=== PATIENT | female | born 1930 | race African-American/Black ===

== ENCOUNTER 2018-05-03 22:36 | Inpatient (IN) | payer MEDICARE, MEDICAID ==
[~2018-05-03] VITALS: Ht 167.6 cm; Wt 61.7 kg
[~2018-05-03 22:36] MED LIST: ASPI-1159 PO; COR25 PO; LEVO25TA7 PO; LOSA1TAB40 PO
[2018-05-03] MEDS ORDERED: ONDANSETRON HCL 4MG/2ML VIAL IV STA (22:59)
[2018-05-03] MEDS ORDERED: SODIUM CHLORIDE 0.9% 1,000 ML IV ONE (22:59)
[2018-05-04] VITALS (10 sets, daily range): BP systolic 105–180; BP diastolic 47–85
[2018-05-04 00:13] LABS: BASOPHILS % 0.6 % (0.0-2.0); EOSINOPHILS % 1.9 % (0.0-5.0); HEMATOCRIT. 26.2 % (36.0-48.0); HEMOGLOBIN. 8.4 g/dL (12.0-16.0); LYMPHOCYTES % 20.3 % (20.0-50.0); MEAN CORPUSCULAR VOLUME 86.9 fL (81.0-99.0); MEAN PLATELET VOLUME 8.6 fl (7.4-10.4); MONOCYTES % 12.5 % (2.0-8.0); NEUTROPHILS % 64.7 % (40.0-76.0); PLATELET 211 x1000/uL (130-400); RED BLOOD CELL COUNT 3.01 mill/uL (4.2-5.4); RED CELL DISTRIBUTION WIDTH 14.3 % (11.6-14.6)
[2018-05-04 00:19] LABS: CHLORIDE 107 mEq/L (98-107)
[2018-05-04 00:32] LABS: INR 1.1; PARTIAL THROMBOPLASTIN TIME 27.5 sec (23.4-31.0); PROTHROMBIN TIME 10.8 sec (9.1-11.1)
[2018-05-04 02:03] LABS: CLARITY URINE CLEAR (CLEAR); COLOR URINE YELLOW (YELLOW); KETONES URINE NEGATIVE (NEGATIVE); LEUKOCYTE ESTERASE URINE NEGATIVE (NEGATIVE); NITRITE URINE NEGATIVE (NEGATIVE); OCCULT BLOOD URINE NEGATIVE (NEGATIVE); PROTEIN URINE NEGATIVE (NEGATIVE); UROBILINOGEN URINE 0.2 E.U./dL (0.2-1.0)
[2018-05-04] MEDS ORDERED: LOSA1TAB34 PO (06:08)
[2018-05-04] MEDS ORDERED: DOXA4TAB3 PO (06:10)
[2018-05-04] MEDS ORDERED: MELA1LIQ PO (06:12)
[2018-05-04] MEDS ORDERED: FURO40TA5 PO (06:12)
[2018-05-04] MEDS ORDERED: HYDROCODONE/ACETAMINOPHEN 5/325MG TABLET PO PRN (07:30)
[2018-05-04] MEDS ORDERED: ONDANSETRON HCL 4MG/2ML VIAL IV PRN (07:30)
[2018-05-04] MEDS ORDERED: ACETAMINOPHEN 325MG TABLET PO PRN (07:30)
[2018-05-04] MEDS ORDERED: IPRATROPIUM/ALBUTEROL 0.5-3(2.5)MG/3ML NEB INH PRN (07:30)
[2018-05-04] MEDS ORDERED: ACETAMINOPHEN 650MG/20.3ML UDC GT PRN (07:30)
[2018-05-04] MEDS ORDERED: GUAIFENESIN 200MG/10ML SUGAR FREE UDC PO PRN (07:30)
[2018-05-04] MEDS ORDERED: ACETAMINOPHEN 650MG SUPP PR PRN (07:30)
[2018-05-04] MEDS ORDERED: DOCUSATE SODIUM 100MG CAPSULE PO PRN (07:30)
[2018-05-04] MEDS ORDERED: MAGNESIUM/ALUMINUM HYDROXIDE/SIMETHICONE 30ML UDC PO PRN (07:30)
[2018-05-04] MEDS ORDERED: DIPHENHYDRAMINE 50MG/ML VIAL IV PRN (07:30)
[2018-05-04] MEDS ORDERED: NA PHOS,M-B/NA PHOS,DI-BA ENEMA 118ML PR PRN (07:30)
[2018-05-04 09:14] LABS: BASOPHILS % 0.8 % (0.0-2.0); EOSINOPHILS % 1.1 % (0.0-5.0); HEMATOCRIT. 24.7 % (36.0-48.0); HEMOGLOBIN. 7.8 g/dL (12.0-16.0); LYMPHOCYTES % 33.7 % (20.0-50.0); MEAN CORPUSCULAR HEMOGLOBIN 27.8 pg (28.0-32.0); MEAN CORPUSCULAR VOLUME 87.9 fL (81.0-99.0); MEAN PLATELET VOLUME 8.8 fl (7.4-10.4); MONOCYTES % 13.6 % (2.0-8.0); NEUTROPHILS % 50.8 % (40.0-76.0); PLATELET 202 x1000/uL (130-400); RED BLOOD CELL COUNT 2.81 mill/uL (4.2-5.4); RED CELL DISTRIBUTION WIDTH 14.7 % (11.6-14.6)
[2018-05-04 10:33] LABS: CHLORIDE 109 mEq/L (98-107)
[2018-05-04 10:41] LABS: LDL CHOLESTEROL 70 mg/dL (5-100)
[2018-05-04 10:42] LABS: HDL CHOLESTEROL 47 mg/dL (40-59)
[2018-05-04 10:43] LABS: TOTAL IRON BINDING CAPACITY 217 ug/dL (250-450)
[2018-05-04 11:03] LABS: FOLIC ACID (FOLATE) SERUM 19.7 ng/mL (>5.38)
[2018-05-04 11:10] LABS: CLARITY URINE CLEAR (CLEAR); COLOR URINE YELLOW (YELLOW); KETONES URINE NEGATIVE (NEGATIVE); LEUKOCYTE ESTERASE URINE 1+ (NEGATIVE); NITRITE URINE NEGATIVE (NEGATIVE); OCCULT BLOOD URINE NEGATIVE (NEGATIVE); PROTEIN URINE NEGATIVE (NEGATIVE); SPECIFIC GRAVITY URINE 1.015 (1.005-1.030); UROBILINOGEN URINE 0.2 E.U./dL (0.2-1.0)
[2018-05-04 11:55] LABS: *AMPHETAMINES SCREEN URINE NEGATIVE (NEGATIVE); *BARBITURATES SCREEN URINE NEGATIVE (NEGATIVE); *BENZODIAZEPINES SCREEN URINE NEGATIVE (NEGATIVE); *COCAINE SCREEN URINE NEGATIVE (NEGATIVE); METHADONE URINE SCREEN NEGATIVE (NEGATIVE)
[2018-05-04 11:56] LABS: CANNABINOID URINE SCREEN NEGATIVE (NEGATIVE); OPIATES URINE SCREEN PRESUMTIVE POSITIVE (NEGATIVE); PHENCYCLIDINE URINE SCREEN NEGATIVE (NEGATIVE)
[2018-05-04] MEDS: SODIUM CHLORIDE 0.9% INJ 3ML FLUSH IVF SCH ×2 (14:00→21:25)
[2018-05-04 15:45] LABS: CREATINE KINASE 87 IU/L (26-192)
[2018-05-04 15:46] LABS: CREATINE KINASE MB FRACTION 1.2 ng/mL (0.5-3.6)
[2018-05-04 20:11] LABS: HEMATOCRIT 27.8 % (36.0-48.0); HEMOGLOBIN 8.9 g/dL (12.0-16.0); MEAN CORPUSCULAR HEMOGLOBIN 27.8 pg (28.0-32.0); MEAN CORPUSCULAR VOLUME 86.8 fL (81.0-99.0); PLATELET 218 x1000/uL (130-400); RED BLOOD CELL COUNT 3.21 mill/uL (4.2-5.4); RED CELL DISTRIBUTION WIDTH 14.4 % (11.6-14.6)
[2018-05-04] MEDS: CLONIDINE 0.1MG TABLET PO PRN (20:36)
[2018-05-05] VITALS (8 sets, daily range): BP systolic 130–183; BP diastolic 57–79
[2018-05-05 00:24] LABS: CREATINE KINASE 80 IU/L (26-192)
[2018-05-05 00:25] LABS: CREATINE KINASE MB FRACTION 1.2 ng/mL (0.5-3.6)
[2018-05-05] MEDS: CLONIDINE 0.1MG TABLET PO PRN (05:01)
[2018-05-05] MEDS: SODIUM CHLORIDE 0.9% INJ 3ML FLUSH IVF SCH ×2 (05:01→14:26)
[2018-05-05 07:02] LABS: BASOPHILS % 0.5 % (0.0-2.0); EOSINOPHILS % 3.8 % (0.0-5.0); HEMATOCRIT. 25.8 % (36.0-48.0); HEMOGLOBIN. 8.5 g/dL (12.0-16.0); LYMPHOCYTES % 33.7 % (20.0-50.0); MEAN CORPUSCULAR HEMOGLOBIN 28.6 pg (28.0-32.0); MEAN CORPUSCULAR VOLUME 86.6 fL (81.0-99.0); MEAN PLATELET VOLUME 8.6 fl (7.4-10.4); MONOCYTES % 13.4 % (2.0-8.0); NEUTROPHILS % 48.6 % (40.0-76.0); PLATELET 185 x1000/uL (130-400); RED BLOOD CELL COUNT 2.98 mill/uL (4.2-5.4); RED CELL DISTRIBUTION WIDTH 14.2 % (11.6-14.6)
[2018-05-05 09:06] LABS: CHLORIDE 109 mEq/L (98-107)
[2018-05-05 09:14] LABS: LDL CHOLESTEROL 70 mg/dL (5-100)
[2018-05-05 09:15] LABS: HDL CHOLESTEROL 43 mg/dL (40-59)
[2018-05-05] MEDS ORDERED: SIMETHICONE 40 MG/0.6 ML 30ML ONE (14:31)
[2018-05-05] MEDS ORDERED: SODIUM CHLORIDE 0.9% 10ML VIAL ONE (15:06)
[2018-05-05] MEDS ORDERED: MIDAZOLAM HCL 5 MG/5 ML VIAL ONE (16:00)
[2018-05-05] MEDS ORDERED: FENTANYL CITRATE/PF 50MCG/ML 2ML VIAL ONE (16:01)
[2018-05-05] MEDS ORDERED: MIDAZOLAM HCL 5 MG/5 ML VIAL IV PRN (16:20)
[2018-05-05] MEDS ORDERED: HYDRALAZINE 20MG/ML VIAL IV ONE (16:30)
[2018-05-05] MEDS ORDERED: HYDRALAZINE 20MG/ML VIAL ONE (16:38)
[2018-05-05] MEDS ORDERED: HYDRALAZINE 20MG/ML VIAL IV NR (16:45)
== END 2018-05-05 19:49 | disposition home or self-care (01) | DRG 241 ==
LOC: ER 23:07 → 6WST 05-04 02:23 → ENRESERV 05-04 03:23
PROVIDERS: ADMIT Family Medicine; ATTEND Family Medicine
PROC: 30233N1 Transfusion of Nonautologous Red Blood Cells into Peripheral Vein, Percutaneous Approach (ICD-10-PCS; 2018-05-04)
PROC: 0DB68ZX Excision of Stomach, Via Natural or Artificial Opening Endoscopic, Diagnostic (ICD-10-PCS; principal; 2018-05-05 15:00)
DX: K29.70 Gastritis, unspecified, without bleeding (principal); E46 Unspecified protein-calorie malnutrition; I13.10 Hypertensive heart and chronic kidney disease without heart failure, with stage 1 through stage 4 chronic kidney disease, or unspecified chronic kidney disease; L97.929 Non-pressure chronic ulcer of unspecified part of left lower leg with unspecified severity; E86.0 Dehydration; D50.9 Iron deficiency anemia, unspecified; R55 Syncope and collapse; E78.5 Hyperlipidemia, unspecified; E03.9 Hypothyroidism, unspecified; N18.9 Chronic kidney disease, unspecified; I87.2 Venous insufficiency (chronic) (peripheral); K29.60 Other gastritis without bleeding; K44.9 Diaphragmatic hernia without obstruction or gangrene; Z87.11 Personal history of peptic ulcer disease; Z91.5 Personal history of self-harm; Z79.82 Long term (current) use of aspirin; Z79.899 Other long term (current) drug therapy; Z68.22 Body mass index [BMI] 22.0-22.9, adult
CPT/HCPCS: 36415; 36430; 71045; 80053; 80061; 80305; 81003; 82550; 82553; 82607; 82746; 83036; 83540; 83550; 83735; 83880; 84443; 84484; 85025; 85027; 85610; 85730; 86850; 86900; 86920; 87086; 88305; 88312; 88313; 93005; 93306; 93880; 93923; 96361; 96374; 99285; A4216; J0360; J2250; J2405; J3010; J7030; J7040; P9016

== ENCOUNTER 2019-02-25 15:56 | Emergency (ER) | payer MEDICARE, MEDICAID ==
[~2019-02-25] VITALS: Ht 157.5 cm; Wt 55.0 kg
[~2019-02-25 15:56] MED LIST changes: -ASPI-1159 PO; +ASPI-1393 PO; +DOXA4TAB3 PO; +FURO40TA5 PO; +LOSA1TAB34 PO; +MELA1LIQ PO
[2019-02-25 18:10] LABS: BASOPHILS % 0.8 % (0.0-2.0); EOSINOPHILS % 4.8 % (0.0-5.0); HEMATOCRIT. 28.5 % (36.0-48.0); HEMOGLOBIN. 9.3 g/dL (12.0-16.0); LYMPHOCYTES % 35.5 % (20.0-50.0); MEAN CORPUSCULAR HEMOGLOBIN 29.5 pg (28.0-32.0); MEAN CORPUSCULAR VOLUME 90.2 fL (81.0-99.0); MEAN PLATELET VOLUME 7.9 fl (7.4-10.4); MONOCYTES % 13.8 % (2.0-8.0); NEUTROPHILS % 45.1 % (40.0-76.0); PLATELET 216 x1000/uL (130-400); RED BLOOD CELL COUNT 3.16 mill/uL (4.2-5.4); RED CELL DISTRIBUTION WIDTH 14.2 % (11.6-14.6)
[2019-02-25 18:12] LABS: CHLORIDE 109 mEq/L (98-107)
[2019-02-25 18:15] LABS: INR 1.1; PARTIAL THROMBOPLASTIN TIME 29.3 sec (23.4-31.0); PROTHROMBIN TIME 11.1 sec (9.6-11.0)
[2019-02-25 19:36] VITALS: BP 184/94
== END 2019-02-25 20:16 | disposition home or self-care (01) ==
LOC: ER 15:56 → CANBEDREQ 22:03
DX: D64.9 Anemia, unspecified (principal); L97.929 Non-pressure chronic ulcer of unspecified part of left lower leg with unspecified severity; I10 Essential (primary) hypertension
CPT/HCPCS: 36415; 71045; 80053; 83880; 84484; 85025; 85610; 85730; 86850; 86900; 86901; 93005; 99284; Z7610

== ENCOUNTER 2019-04-02 10:29 | Inpatient (IN) | payer MEDICARE, MEDICAID ==
[~2019-04-02] VITALS: Ht 165.1 cm; Wt 49.9 kg
[2019-04-02 11:05] LABS: BASOPHILS % 0.8 % (0.0-2.0); EOSINOPHILS % 2.2 % (0.0-5.0); HEMATOCRIT. 32.8 % (36.0-48.0); HEMOGLOBIN. 10.6 g/dL (12.0-16.0); LYMPHOCYTES % 33.6 % (20.0-50.0); MEAN CORPUSCULAR VOLUME 89.3 fL (81.0-99.0); MEAN PLATELET VOLUME 9.5 fl (7.4-10.4); MONOCYTES % 11.3 % (2.0-8.0); NEUTROPHILS % 52.1 % (40.0-76.0); PLATELET 172 x1000/uL (130-400); RED BLOOD CELL COUNT 3.67 mill/uL (4.2-5.4); RED CELL DISTRIBUTION WIDTH 13.8 % (11.6-14.6)
[2019-04-02 11:07] LABS: CHLORIDE 108 mEq/L (98-107)
[2019-04-02 11:08] LABS: INR 1.1; PROTHROMBIN TIME 11.1 sec (9.6-11.0)
[2019-04-02 11:10] LABS: ETHANOL BLOOD < 10 mg/dL
[2019-04-02 11:14] LABS: LDL CHOLESTEROL 95 mg/dL (5-100)
[2019-04-02] MEDS ORDERED: ASPIRIN 325MG EC TABLET PO ONE (11:45)
[2019-04-02 12:01] LABS: CLARITY URINE CLOUDY (CLEAR); COLOR URINE YELLOW (YELLOW); KETONES URINE TRACE (NEGATIVE); LEUKOCYTE ESTERASE URINE 2+ (NEGATIVE); NITRITE URINE NEGATIVE (NEGATIVE); OCCULT BLOOD URINE NEGATIVE (NEGATIVE); PH URINE 5.5 (4.5-8.0); PROTEIN URINE NEGATIVE (NEGATIVE); UROBILINOGEN URINE 0.2 E.U./dL (0.2-1.0)
[2019-04-02 12:27] LABS: *BARBITURATES SCREEN URINE NEGATIVE (NEGATIVE); *BENZODIAZEPINES SCREEN URINE NEGATIVE (NEGATIVE); *COCAINE SCREEN URINE NEGATIVE (NEGATIVE); METHADONE URINE SCREEN NEGATIVE (NEGATIVE); OPIATES URINE SCREEN NEGATIVE (NEGATIVE)
[2019-04-02 12:28] LABS: *AMPHETAMINES SCREEN URINE NEGATIVE (NEGATIVE); CANNABINOID URINE SCREEN NEGATIVE (NEGATIVE); PHENCYCLIDINE URINE SCREEN NEGATIVE (NEGATIVE)
[2019-04-02] MEDS ORDERED: MAGNESIUM/ALUMINUM HYDROXIDE/SIMETHICONE 30ML UDC PO PRN (12:30)
[2019-04-02] MEDS ORDERED: ACETAMINOPHEN 325MG TABLET PO PRN (12:30)
[2019-04-02] MEDS ORDERED: ONDANSETRON HCL 4MG/2ML INJ IV PRN (12:30)
[2019-04-02] MEDS ORDERED: HYDROCODONE/ACETAMINOPHEN 5/325MG TABLET PO PRN (12:30)
[2019-04-02] MEDS ORDERED: CLONIDINE 0.1MG TABLET PO PRN (12:30)
[2019-04-02] MEDS ORDERED: BENA1TAB18 MT (12:41)
[2019-04-02] MEDS ORDERED: AMLO5TAB88 MT (12:44)
[2019-04-02] MEDS ORDERED: ALBU6.7H INH (12:44)
[2019-04-02] MEDS: LEVOTHYROXINE SODIUM 25MCG TABLET PO SCH (14:00)
[2019-04-02] MEDS: CARVEDILOL 12.5MG TABLET PO SCH ×2 (14:01→21:36)
[2019-04-02] MEDS: AMLODIPINE 10MG TABLET PO SCH (14:01)
[2019-04-02] MEDS ORDERED: LEVOFLOXACIN 500MG PREMIX 100 ML IV NR (15:00)
[2019-04-02 15:39] VITALS: BP 190/80
[2019-04-02 16:26] VITALS: BP 190/85
[2019-04-02] MEDS: SODIUM CHLORIDE 0.45% 1,000 ML IV SCH (18:24)
[2019-04-02 20:00] VITALS: BP 165/76
[2019-04-02] MEDS ORDERED: DOXAZOSIN MESYLATE 4MG TABLET PO SCH (21:00)
[2019-04-03] VITALS (7 sets, daily range): BP systolic 136–183; BP diastolic 59–81
[2019-04-03] MEDS: LEVOTHYROXINE SODIUM 25MCG TABLET PO SCH (06:21)
[2019-04-03 08:48] LABS: EOSINOPHILS % 6.4 % (0.0-5.0); HEMATOCRIT. 31.2 % (36.0-48.0); HEMOGLOBIN. 10.1 g/dL (12.0-16.0); MEAN CORPUSCULAR HEMOGLOBIN 28.8 pg (28.0-32.0); MEAN PLATELET VOLUME 9.3 fl (7.4-10.4); MONOCYTES % 12.7 % (2.0-8.0); NEUTROPHILS % 43.9 % (40.0-76.0); PLATELET 164 x1000/uL (130-400); RED CELL DISTRIBUTION WIDTH 13.7 % (11.6-14.6)
[2019-04-03] MEDS ORDERED: ASPIRIN 81MG EC TABLET PO SCH (09:00)
[2019-04-03 09:02] LABS: CHLORIDE 109 mEq/L (98-107)
[2019-04-03 09:10] LABS: LDL CHOLESTEROL 102 mg/dL (5-100)
[2019-04-03] MEDS: AMLODIPINE 10MG TABLET PO SCH (09:10)
[2019-04-03] MEDS: CARVEDILOL 12.5MG TABLET PO SCH (09:10)
[2019-04-03 09:11] LABS: HDL CHOLESTEROL 74 mg/dL (40-59)
[2019-04-03] MEDS: SODIUM CHLORIDE 0.45% 1,000 ML IV SCH (10:41)
[2019-04-03] MEDS ORDERED: LEVOFLOXACIN 250MG PREMIX 50 ML IV SCH ×2 (14:00→15:00)
[2019-04-03] MEDS ORDERED: ATORVASTATIN CALCIUM 10MG TABLET PO SCH (21:00)
== END 2019-04-03 16:30 | disposition home or self-care (01) | DRG 47 ==
LOC: ER 10:29 → 5EST 11:40 → ENRESERV 12:03 → 5WST 13:51
PROVIDERS: ADMIT Hospitalist; ATTEND Hospitalist
DX: G45.9 Transient cerebral ischemic attack, unspecified (principal); N17.9 Acute kidney failure, unspecified; E44.0 Moderate protein-calorie malnutrition; D64.9 Anemia, unspecified; N39.0 Urinary tract infection, site not specified; I10 Essential (primary) hypertension; R29.810 Facial weakness; Z79.899 Other long term (current) drug therapy; Z79.82 Long term (current) use of aspirin; Z68.1 Body mass index [BMI] 19.9 or less, adult
CPT/HCPCS: 36415; 70551; 71045; 80061; 80305; 80320; 82962; 83721; 84484; 93880; 93970; 97162; 99285; J1956; G0480

== ENCOUNTER 2019-04-06 09:36 | Inpatient (IN) | payer MEDICARE, MEDICAID ==
[~2019-04-06] VITALS: Ht 167.6 cm; Wt 61.2 kg
[~2019-04-06 09:36] MED LIST changes: +ALBU6.7H INH; +AMLO5TAB88 MT; +BENA1TAB18 MT
[2019-04-06 10:40] LABS: HEMATOCRIT. 31.5 % (36.0-48.0); HEMOGLOBIN. 10.6 g/dL (12.0-16.0); MEAN CORPUSCULAR HEMOGLOBIN 29.5 pg (28.0-32.0); MEAN PLATELET VOLUME 9.1 fl (7.4-10.4); PLATELET 154 x1000/uL (130-400); RED BLOOD CELL COUNT 3.57 mill/uL (4.2-5.4); RED CELL DISTRIBUTION WIDTH 13.6 % (11.6-14.6)
[2019-04-06 10:45] LABS: CHLORIDE 103 mEq/L (98-107)
[2019-04-06 11:11] LABS: ETHANOL BLOOD < 10 mg/dL
[2019-04-06 11:19] LABS: PLATELET ESTIMATE NORMAL
[2019-04-06] MEDS ORDERED: ACETAMINOPHEN 325MG TABLET PO STA (14:14)
[2019-04-06 14:30] LABS: CLARITY URINE CLEAR (CLEAR); COLOR URINE YELLOW (YELLOW); KETONES URINE NEGATIVE (NEGATIVE); LEUKOCYTE ESTERASE URINE TRACE (NEGATIVE); NITRITE URINE NEGATIVE (NEGATIVE); OCCULT BLOOD URINE NEGATIVE (NEGATIVE); PROTEIN URINE NEGATIVE (NEGATIVE); SPECIFIC GRAVITY URINE 1.013 (1.005-1.030); UROBILINOGEN URINE 0.2 E.U./dL (0.2-1.0)
[2019-04-06] MEDS ORDERED: CLONIDINE 0.1MG TABLET PO PRN (14:30)
[2019-04-06] MEDS ORDERED: IPRATROPIUM/ALBUTEROL 0.5-3(2.5)MG/3ML NEB INH PRN (14:30)
[2019-04-06] MEDS ORDERED: ACETAMINOPHEN 325MG TABLET PO PRN (14:30)
[2019-04-06] MEDS ORDERED: TRAMADOL 50MG TABLET PO PRN (14:30)
[2019-04-06] MEDS ORDERED: ONDANSETRON HCL 4MG/2ML INJ IV PRN (14:30)
[2019-04-06] MEDS ORDERED: GUAIFENESIN 200MG/10ML SUGAR FREE UDC PO PRN (14:30)
[2019-04-06] MEDS ORDERED: MAGNESIUM/ALUMINUM HYDROXIDE/SIMETHICONE 30ML UDC PO PRN (14:30)
[2019-04-06] MEDS ORDERED: DOCUSATE SODIUM 100MG CAPSULE PO PRN (14:30)
[2019-04-06 14:56] LABS: *BARBITURATES SCREEN URINE NEGATIVE (NEGATIVE); CANNABINOID URINE SCREEN NEGATIVE (NEGATIVE)
[2019-04-06 14:57] LABS: *AMPHETAMINES SCREEN URINE NEGATIVE (NEGATIVE); *BENZODIAZEPINES SCREEN URINE NEGATIVE (NEGATIVE); *COCAINE SCREEN URINE NEGATIVE (NEGATIVE); METHADONE URINE SCREEN NEGATIVE (NEGATIVE); OPIATES URINE SCREEN NEGATIVE (NEGATIVE); PHENCYCLIDINE URINE SCREEN NEGATIVE (NEGATIVE)
[2019-04-06] MEDS: ENOXAPARIN 30MG/0.3ML SYR SUBCUT SCH (15:02)
[2019-04-06 15:24] LABS: T4 FREE 1.2 ng/dL (0.76-1.46)
[2019-04-06] MEDS ORDERED: BENA20TA10 MT (16:24)
[2019-04-06] MEDS ORDERED: AMLO5TAB88 MT (16:24)
[2019-04-06] MEDS ORDERED: CALC-1042 MT (16:24)
[2019-04-06] MEDS ORDERED: GENT30OI2 TP (16:24)
[2019-04-06] MEDS ORDERED: LEVO25TA7 MT (16:24)
[2019-04-06] MEDS ORDERED: FERR236T3 MT (16:24)
[2019-04-06] MEDS ORDERED: FURO40TA5 MT (16:24)
[2019-04-06] MEDS ORDERED: NAPR220C15 PO (16:24)
[2019-04-06] MEDS ORDERED: DOXA4TAB3 MT (16:24)
[2019-04-06] MEDS ORDERED: ATOR10TA69 MT (16:24)
[2019-04-06] MEDS ORDERED: MELA3TAB MT (16:24)
[2019-04-06] MEDS ORDERED: ALBU6.7H9 INH (16:24)
[2019-04-06 16:52] VITALS: BP 117/68
[2019-04-06] MEDS: CARVEDILOL 12.5MG TABLET PO SCH (17:55)
[2019-04-06 20:00] VITALS: BP 97/58
[2019-04-06] MEDS ORDERED: LEVOFLOXACIN 500MG PREMIX 100 ML IV NR (20:00)
[2019-04-06] MEDS: LISINOPRIL 20MG TABLET PO SCH (21:00)
[2019-04-06] MEDS ORDERED: ZOLPIDEM TARTRATE 5MG TABLET PO PRN (21:00)
[2019-04-06] MEDS: HYDRALAZINE HCL 50MG TABLET PO SCH (22:00)
[2019-04-06] MEDS: FAMOTIDINE 20MG TABLET PO SCH (22:07)
[2019-04-06] MEDS: ASCORBIC ACID 500 MG TABLET PO SCH (22:07)
[2019-04-07] VITALS: BP 133/75
[2019-04-07 00:42] LABS: CREATINE KINASE 73 IU/L (26-192); CREATINE KINASE MB FRACTION < 1.0 ng/mL (0.5-3.6)
[2019-04-07 04:00] VITALS: BP 144/78
[2019-04-07] MEDS: HYDRALAZINE HCL 50MG TABLET PO SCH ×3 (06:40→23:02)
[2019-04-07] MEDS: CARVEDILOL 12.5MG TABLET PO SCH ×2 (06:40→17:35)
[2019-04-07] MEDS: LISINOPRIL 20MG TABLET PO SCH ×3 (09:00→20:43)
[2019-04-07] MEDS: ASPIRIN 325MG EC TABLET PO SCH ×2 (09:00→11:15)
[2019-04-07] MEDS: ASCORBIC ACID 500 MG TABLET PO SCH ×3 (09:00→20:33)
[2019-04-07] MEDS: ZINC SULFATE 220 MG ( 50 ) CAPSULE PO SCH ×2 (09:00→11:15)
[2019-04-07] MEDS ORDERED: HALOPERIDOL LACTATE 5MG/ML VIAL IM PRN (11:45)
[2019-04-07 12:00] VITALS: BP 197/82
[2019-04-07 12:22] LABS: CREATINE KINASE 120 IU/L (26-192)
[2019-04-07 12:23] LABS: CREATINE KINASE MB FRACTION 1.2 ng/mL (0.5-3.6)
[2019-04-07] MEDS: ENOXAPARIN 30MG/0.3ML SYR SUBCUT SCH (15:00)
[2019-04-07 16:00] VITALS: BP 123/75
[2019-04-07 20:00] VITALS: BP 137/61
[2019-04-07] MEDS ORDERED: LEVOFLOXACIN 250MG PREMIX 50 ML IV SCH (20:00)
[2019-04-07] MEDS ORDERED: LEVOFLOXACIN 500MG TABLET PO SCH (20:00)
[2019-04-07] MEDS: LEVOFLOXACIN 250MG TABLET PO SCH (20:33)
[2019-04-07] MEDS: FAMOTIDINE 20MG TABLET PO SCH (20:33)
[2019-04-07] MEDS ORDERED: GENTAMICIN 0.1% TOP SCH (23:00)
[2019-04-08] VITALS (28 sets, daily range): BP systolic 106–196; BP diastolic 50–126
[2019-04-08] MEDS: CARVEDILOL 12.5MG TABLET PO SCH (07:05)
[2019-04-08] MEDS: HYDRALAZINE HCL 50MG TABLET PO SCH ×2 (07:06→14:00)
[2019-04-08] MEDS: LISINOPRIL 20MG TABLET PO SCH ×2 (09:00→21:01)
[2019-04-08] MEDS: ASCORBIC ACID 500 MG TABLET PO SCH ×2 (09:00→21:02)
[2019-04-08] MEDS: ZINC SULFATE 220 MG ( 50 ) CAPSULE PO SCH (09:00)
[2019-04-08] MEDS: ASPIRIN 325MG EC TABLET PO SCH (09:00)
[2019-04-08] MEDS ORDERED: DOPAMINE 400MG/250ML PREMIX 250 ML IV PRN (10:45)
[2019-04-08] MEDS ORDERED: ATROPINE SULFATE 1MG/ML VIAL IV PRN (10:45)
[2019-04-08] MEDS ORDERED: HYDRALAZINE HCL 50MG TABLET PO NR (11:45)
[2019-04-08] MEDS ORDERED: LIDOCAINE HCL 1% 20ML VIAL (Pyxis) INJ ONE (12:46)
[2019-04-08 16:08] LABS: BASOPHILS % 0.4 % (0.0-2.0); EOSINOPHILS % 0.3 % (0.0-5.0); HEMATOCRIT. 31.8 % (36.0-48.0); HEMOGLOBIN. 10.4 g/dL (12.0-16.0); LYMPHOCYTES % 24.5 % (20.0-50.0); MEAN CORPUSCULAR VOLUME 88.6 fL (81.0-99.0); MEAN PLATELET VOLUME 9.4 fl (7.4-10.4); MONOCYTES % 5.3 % (2.0-8.0); NEUTROPHILS % 69.5 % (40.0-76.0); PLATELET 175 x1000/uL (130-400); RED BLOOD CELL COUNT 3.59 mill/uL (4.2-5.4)
[2019-04-08 16:18] LABS: CHLORIDE 98 mEq/L (98-107)
[2019-04-08] MEDS: ENOXAPARIN 30MG/0.3ML SYR SUBCUT SCH (16:18)
[2019-04-08] MEDS: FAMOTIDINE 20MG TABLET PO SCH (21:01)
[2019-04-08] MEDS: LEVOFLOXACIN 250MG TABLET PO SCH (21:01)
[2019-04-08] MEDS: DOXAZOSIN MESYLATE 4MG TABLET PO SCH (21:02)
[2019-04-08] MEDS: HYDRALAZINE HCL 100MG TABLET PO SCH (21:03)
[2019-04-09] VITALS (50 sets, daily range): BP systolic 92–182; BP diastolic 42–102
[2019-04-09] MEDS: HYDRALAZINE HCL 100MG TABLET PO SCH ×3 (05:45→22:47)
[2019-04-09 06:07] LABS: HEMATOCRIT. 29.8 % (36.0-48.0); HEMOGLOBIN. 9.8 g/dL (12.0-16.0); MEAN CORPUSCULAR HEMOGLOBIN 29.1 pg (28.0-32.0); MEAN CORPUSCULAR VOLUME 88.2 fL (81.0-99.0); MEAN PLATELET VOLUME 9.3 fl (7.4-10.4); PLATELET 157 x1000/uL (130-400); RED BLOOD CELL COUNT 3.37 mill/uL (4.2-5.4); RED CELL DISTRIBUTION WIDTH 13.9 % (11.6-14.6)
[2019-04-09] MEDS: LISINOPRIL 20MG TABLET PO SCH (09:00)
[2019-04-09] MEDS: ZINC SULFATE 220 MG ( 50 ) CAPSULE PO SCH (09:00)
[2019-04-09] MEDS: ASPIRIN 81MG EC TABLET PO SCH (09:01)
[2019-04-09] MEDS: ASCORBIC ACID 500 MG TABLET PO SCH ×2 (09:01→20:45)
[2019-04-09] MEDS: SODIUM CHLORIDE 0.9% 1,000 ML IV SCH (12:02)
[2019-04-09] MEDS: ENOXAPARIN 30MG/0.3ML SYR SUBCUT SCH (15:40)
[2019-04-09 15:41] LABS: PLATELET ESTIMATE NORMAL
[2019-04-09 19:38] LABS: INR 1.1; PROTHROMBIN TIME 11.5 sec (9.6-11.0)
[2019-04-09] MEDS: DOXAZOSIN MESYLATE 4MG TABLET PO SCH (20:45)
[2019-04-09] MEDS: LEVOFLOXACIN 250MG TABLET PO SCH (20:45)
[2019-04-09] MEDS: FAMOTIDINE 20MG TABLET PO SCH (20:46)
[2019-04-10] VITALS (35 sets, daily range): BP systolic 105–165; BP diastolic 39–137
[2019-04-10] MEDS: SODIUM CHLORIDE 0.9% 1,000 ML IV SCH ×2 (01:17→15:10)
[2019-04-10 04:36] LABS: BASOPHILS % 0.4 % (0.0-2.0); EOSINOPHILS % 0.3 % (0.0-5.0); HEMATOCRIT. 28.1 % (36.0-48.0); HEMOGLOBIN. 9.5 g/dL (12.0-16.0); MEAN CORPUSCULAR HEMOGLOBIN 29.5 pg (28.0-32.0); MEAN CORPUSCULAR VOLUME 87.3 fL (81.0-99.0); MONOCYTES % 10.4 % (2.0-8.0); NEUTROPHILS % 67.9 % (40.0-76.0); PLATELET 140 x1000/uL (130-400); RED BLOOD CELL COUNT 3.22 mill/uL (4.2-5.4); RED CELL DISTRIBUTION WIDTH 13.9 % (11.6-14.6)
[2019-04-10] MEDS: HYDRALAZINE HCL 100MG TABLET PO SCH ×3 (06:27→21:18)
[2019-04-10] MEDS: ASCORBIC ACID 500 MG TABLET PO SCH ×2 (08:20→21:17)
[2019-04-10] MEDS: ASPIRIN 81MG EC TABLET PO SCH (08:21)
[2019-04-10] MEDS: ZINC SULFATE 220 MG ( 50 ) CAPSULE PO SCH (08:21)
[2019-04-10] MEDS ORDERED: BISACODYL 10MG SUPP PR PRN (12:00)
[2019-04-10] MEDS: CLOPIDOGREL 75MG TABLET PO SCH ×2 (15:16→15:27)
[2019-04-10] MEDS: ENOXAPARIN 30MG/0.3ML SYR SUBCUT SCH (15:17)
[2019-04-10] MEDS ORDERED: LACTULOSE 20G/30ML UDC PO PRN (21:00)
[2019-04-10] MEDS: DOXAZOSIN MESYLATE 4MG TABLET PO SCH (21:14)
[2019-04-10] MEDS: LEVOFLOXACIN 250MG TABLET PO SCH (21:17)
[2019-04-10] MEDS: FAMOTIDINE 20MG TABLET PO SCH (21:17)
[2019-04-10] MEDS: ATORVASTATIN CALCIUM 20MG TABLET PO SCH (21:17)
[2019-04-11] VITALS (12 sets, daily range): BP systolic 115–174; BP diastolic 20–155
[2019-04-11] MEDS: HYDRALAZINE HCL 100MG TABLET PO SCH ×2 (07:14→14:04)
[2019-04-11] MEDS: ZINC SULFATE 220 MG ( 50 ) CAPSULE PO SCH (09:24)
[2019-04-11] MEDS: ASCORBIC ACID 500 MG TABLET PO SCH ×2 (09:24→20:10)
[2019-04-11] MEDS: SODIUM CHLORIDE 0.9% 1,000 ML IV SCH ×2 (09:26→17:05)
[2019-04-11] MEDS: ENOXAPARIN 30MG/0.3ML SYR SUBCUT SCH (14:04)
[2019-04-11] MEDS: FAMOTIDINE 20MG TABLET PO SCH (20:10)
[2019-04-11] MEDS: ATORVASTATIN CALCIUM 20MG TABLET PO SCH (20:10)
[2019-04-11] MEDS: LEVOFLOXACIN 250MG TABLET PO SCH (20:11)
[2019-04-11] MEDS: DOXAZOSIN MESYLATE 4MG TABLET PO SCH (20:11)
[2019-04-12] VITALS (13 sets, daily range): BP systolic 129–164; BP diastolic 56–109
[2019-04-12] MEDS: HYDRALAZINE HCL 100MG TABLET PO SCH ×4 (02:22→20:38)
[2019-04-12] MEDS: SODIUM CHLORIDE 0.9% 1,000 ML IV SCH (07:03)
[2019-04-12] MEDS: CLOPIDOGREL 75MG TABLET PO SCH (08:25)
[2019-04-12] MEDS: ASCORBIC ACID 500 MG TABLET PO SCH ×2 (08:25→20:37)
[2019-04-12] MEDS: ZINC SULFATE 220 MG ( 50 ) CAPSULE PO SCH (08:25)
[2019-04-12] MEDS: ENOXAPARIN 30MG/0.3ML SYR SUBCUT SCH (14:38)
[2019-04-12] MEDS: ATORVASTATIN CALCIUM 20MG TABLET PO SCH (20:37)
[2019-04-12] MEDS: LEVOFLOXACIN 250MG TABLET PO SCH (20:38)
[2019-04-12] MEDS: FAMOTIDINE 20MG TABLET PO SCH (20:38)
[2019-04-12] MEDS: DOXAZOSIN MESYLATE 4MG TABLET PO SCH (20:38)
[2019-04-13] VITALS (21 sets, daily range): BP systolic 122–197; BP diastolic 55–106
[2019-04-13] MEDS: HYDRALAZINE HCL 100MG TABLET PO SCH ×3 (05:09→21:08)
[2019-04-13] MEDS: ZINC SULFATE 220 MG ( 50 ) CAPSULE PO SCH (08:46)
[2019-04-13] MEDS: ASCORBIC ACID 500 MG TABLET PO SCH ×2 (08:46→21:09)
[2019-04-13] MEDS: CLOPIDOGREL 75MG TABLET PO SCH (08:53)
[2019-04-13] MEDS: ENOXAPARIN 30MG/0.3ML SYR SUBCUT SCH (14:00)
[2019-04-13] MEDS: DOXAZOSIN MESYLATE 4MG TABLET PO SCH (21:08)
[2019-04-13] MEDS: LEVOFLOXACIN 250MG TABLET PO SCH (21:08)
[2019-04-13] MEDS: ATORVASTATIN CALCIUM 20MG TABLET PO SCH (21:09)
[2019-04-13] MEDS: FAMOTIDINE 20MG TABLET PO SCH (21:09)
[2019-04-14] VITALS (10 sets, daily range): BP systolic 122–157; BP diastolic 60–96
[2019-04-14] MEDS: HYDRALAZINE HCL 100MG TABLET PO SCH ×2 (06:22→14:21)
[2019-04-14] MEDS: CLOPIDOGREL 75MG TABLET PO SCH (09:07)
[2019-04-14] MEDS: ZINC SULFATE 220 MG ( 50 ) CAPSULE PO SCH (09:07)
[2019-04-14] MEDS: ASCORBIC ACID 500 MG TABLET PO SCH (09:07)
[2019-04-14] MEDS: ENOXAPARIN 30MG/0.3ML SYR SUBCUT SCH (14:22)
== END 2019-04-14 16:55 | disposition home health service (06) | DRG 45 ==
LOC: ER 09:36 → 8WST 13:33 → SUPCPDRO 14:27 → ENRESERV 15:39 → CVICU 04-08 10:45 → 5EST 04-11 01:30
PROVIDERS: ADMIT Internal Medicine; ATTEND Internal Medicine
PROC: 02HV33Z Insertion of Infusion Device into Superior Vena Cava, Percutaneous Approach (ICD-10-PCS; principal; 2019-04-08)
PROC: B548ZZA Ultrasonography of Superior Vena Cava, Guidance (ICD-10-PCS; 2019-04-08)
DX: I63.9 Cerebral infarction, unspecified (principal); N17.0 Acute kidney failure with tubular necrosis; G92 Toxic encephalopathy; L97.929 Non-pressure chronic ulcer of unspecified part of left lower leg with unspecified severity; E44.1 Mild protein-calorie malnutrition; N39.0 Urinary tract infection, site not specified; N18.9 Chronic kidney disease, unspecified; E03.9 Hypothyroidism, unspecified; E78.5 Hyperlipidemia, unspecified; I45.5 Other specified heart block; D63.8 Anemia in other chronic diseases classified elsewhere; I87.2 Venous insufficiency (chronic) (peripheral); R47.81 Slurred speech; I73.9 Peripheral vascular disease, unspecified; Z79.899 Other long term (current) drug therapy; Z82.49 Family history of ischemic heart disease and other diseases of the circulatory system; Z91.5 Personal history of self-harm; Z68.21 Body mass index [BMI] 21.0-21.9, adult; I13.10 Hypertensive heart and chronic kidney disease without heart failure, with stage 1 through stage 4 chronic kidney disease, or unspecified chronic kidney disease
CPT/HCPCS: 36415; 70551; 71045; 76937; 80048; 80061; 80305; 80320; 82550; 82553; 82962; 83036; 83735; 84439; 84443; 84484; 92523; 92610; 93005; 93306; 93970; 94640; 96372; 97162; 97164; 97166; 97168; 97530; 97535; 99285; C1725; J1650; J1956; J3490; J7030; J7042; J7620; G0480